=== PATIENT | male | born 1955 | race Two or more races ===

== ENCOUNTER 2021-11-08 17:05 | Emergency (ER) | payer OTHER ==
[~2021-11-08] VITALS: Ht 167.6 cm; Wt 74.8 kg
[2021-11-08 18:37] VITALS: BP 175/78
[2021-11-08] MEDS ORDERED: HYDROcodone-ACET 5/325MG TAB PO ONE (19:15)
[2021-11-08] MEDS ORDERED: KETOROLAC TROMETH 60MG/2ML VIAL IM ONE (19:15)
== END 2021-11-08 19:55 | disposition home or self-care (01) ==
LOC: ER 17:05
DX: S43.101A Unspecified dislocation of right acromioclavicular joint, initial encounter (principal); S43.401A Unspecified sprain of right shoulder joint, initial encounter; E11.9 Type 2 diabetes mellitus without complications; E78.5 Hyperlipidemia, unspecified; V49.9XXA Car occupant (driver) (passenger) injured in unspecified traffic accident, initial encounter; Y93.89 Activity, other specified; Y92.89 Other specified places as the place of occurrence of the external cause; Y99.8 Other external cause status
CPT/HCPCS: 73030; 93005